=== PATIENT | female | born 1935 ===

== ENCOUNTER → 2018-07-30 | Outpatient (REF) ==
[2018-07-30 09:51] LABS: CALCIUM 8.9 mg/dL (8.4-10.2); CREATININE, serum 0.61 mg/dL (0.52-1.25); POTASSIUM 4.5 mmol/L (3.4-5.0)
== END ==
LOC: ZLAB.STJ 09:29
PROVIDERS: Family Medicine
DX: R03.0 Elevated blood-pressure reading, without diagnosis of hypertension (principal)

== ENCOUNTER → 2018-08-01 | Outpatient (REF) ==
[2018-08-01 09:55] LABS: CALCIUM 8.9 mg/dL (8.4-10.2); CREATININE, serum 0.63 mg/dL (0.52-1.25); POTASSIUM 4.6 mmol/L (3.4-5.0)
== END ==
LOC: ZLAB.STJ 09:35
PROVIDERS: Family Medicine
DX: I10 Essential (primary) hypertension (principal)